=== PATIENT | female | born 1945 | race Caucasian/White ===

== ENCOUNTER → 2017-05-05 | Outpatient (CLI) | payer MEDICARE ==
[~2017-05-05] MED LIST: ALDACTONE 25MG25 M1 PO; AMOXICILLIN 8751 TAB PO; ASPIRIN E.C. 8181 MG PO; BIATIN; CALCIUM 600-D 61 TAB PO; CARVEDILOL PO; CLARITIN 1010 MG/TAB PO; COREG 25MG25 MG/TAB PO; D BIOTIN PO; DELSYM30 MG/5 ML PO; MULTI VITAMINS1 TAB PO; POTASSIUM GLUCO80 MG PO; PREVACID 15MG15 M1 PO; PROAIR HFA0.09 MG/AC IH; RICOLA COUGH DROPS PO; ROBITUSSIN COUGH PO; SPIRIVA INH IH; VICODIN 5/5001 UDTAB PO; ZANTAC; ZYRTEC5 M1 PO; [UNRECOGNIZED DRUG - REMARK]; [UNRECOGNIZED DRUG - REMARK]
== END ==
LOC: MC.RAD 09:59
DX: Z12.31 Encounter for screening mammogram for malignant neoplasm of breast (principal)

== ENCOUNTER → 2018-05-06 | Outpatient (CLI) | payer MEDICARE | LOC: MC.RAD 05-01 13:00 | DX: Z12.31 Encounter for screening mammogram for malignant neoplasm of breast (principal) ==

== ENCOUNTER → 2019-05-24 | Outpatient (CLI) | payer MEDICARE | LOC: MC.RAD 14:35 | DX: Z12.31 Encounter for screening mammogram for malignant neoplasm of breast (principal) ==

== ENCOUNTER → 2019-06-10 | Outpatient (CLI) | payer MEDICARE | LOC: ZCOL.LAB 16:10 | DX: J32.4 Chronic pansinusitis (principal) ==

== ENCOUNTER → 2019-06-14 | Outpatient (CLI) | payer MEDICARE | LOC: COL.RAD 10:55 | DX: R74.8 Abnormal levels of other serum enzymes (principal) ==

== ENCOUNTER 2019-06-18 11:27 | Outpatient (CLI) | payer MEDICARE ==
[~2019-06-18] VITALS: Ht 154.9 cm; Wt 61.5 kg
[2019-06-18] MEDS ORDERED: PROTONIX20 MG PO (12:20)
[2019-06-18 12:23] VITALS: BP 163/72; PULSE 82; TEMP 98.4
== END 2019-06-18 12:23 | disposition home or self-care (01) ==
LOC: EUO 11:27
DX: M81.0 Age-related osteoporosis without current pathological fracture (principal); Z79.899 Other long term (current) drug therapy
CPT/HCPCS: J0897

== ENCOUNTER → 2021-03-12 | Outpatient (CLI) | payer MEDICARE ==
[~2021-03-12] MED LIST changes: +PROTONIX20 MG PO
== END ==
LOC: MC.RAD 13:26
DX: Z12.31 Encounter for screening mammogram for malignant neoplasm of breast (principal)

== ENCOUNTER → 2022-04-17 | Outpatient (CLI) | payer MEDICARE | LOC: MC.RAD 04-03 13:30 | DX: Z12.31 Encounter for screening mammogram for malignant neoplasm of breast (principal) ==